=== PATIENT | male | born 1945 | race Caucasian/White ===

== ENCOUNTER 2021-07-29 11:51 | Emergency (ER) | payer MEDICARE ==
[~2021-07-29] VITALS: Ht 177.8 cm; Wt 77.7 kg
--- NOTE | 2021-07-29 12:40 | PHYS DOC ---
Past History Past Surgical History: Other Additional Past Surgical Histo: bilat rotator cuff repairs Alcohol Use: None General Adult EDM: Chief Complaint: DIARRHEA HPI: HPI: 75-year-old male presents with fevers, chills, body aches, diarrhea for least the last 3 days. The patient is not vaccinated for COVID-19. His fevers have been up to 102. He went to urgent care yesterday and had a COVID-19 test, but has not come back yet. The patient continues to have watery diarrhea. He tells me he has lost 4 pounds in the last 2 days. Patient has cardiac disease and has a scheduled bypass at the end of August. The patient is concerned about being dehydrated because of all the diarrhea. He has been able to drink some fluids but not anything. He has generalized abdominal pain. Review of Systems: Review of Systems: Constitutional: Fever, chills, fatigue. Eyes: Denies change in visual acuity HENT: Denies nasal congestion or sore throat Respiratory: Denies cough or shortness of breath Cardiovascular: Denies chest pain or edema GI: Generalized abdominal pain, nausea, vomiting, diarrhea : Denies dysuria Musculoskeletal: Denies back pain or joint pain Integument: Denies rash Neurologic: Denies headache, focal weakness or sensory changes Endocrine: Denies polyuria or polydipsia Lymphatic: Denies swollen glands Psychiatric: Denies depression or anxiety Current Medications: Current Meds: Current Medications Medications (Trade) Dose Ordered Sig/Alice Start Time Stop Time Status Last Admin Dose Admin Sodium Chloride 1,000 ml @ 1,000 mls/hr 1X ONCE 07/29/21 12:45 07/29/21 13:44 Allergies: Allergies: Allergies Coded Allergies Type Severity Reaction Last Updated Verified No Known Drug Allergies 07/29/21 No Physical Exam: PE: Constitutional: Well developed, well nourished, no acute distress, non-toxic appearance. [] HENT: Normocephalic, atraumatic, bilateral external ears normal, oropharynx moist, no oral exudates, nose normal. [] Eyes: PERRLA, EOMI, conjunctiva normal, no discharge. [] Neck: Normal range of motion, no tenderness, supple, no stridor. [] Cardiovascular: Heart rate 94, regular rhythm, no murmur [] Lungs & Thorax: Bilateral breath sounds clear to auscultation [] Abdomen: Bowel sounds normal, soft, mild generalized tenderness, no masses, no pulsatile masses. [] Skin: Warm, dry, no erythema, no rash. [] Back: No tenderness, no CVA tenderness. [] Extremities: No tenderness, no cyanosis, no clubbing, ROM intact, no edema. [] Neurologic: Alert and oriented X 3, normal motor function, normal sensory funct ion, no focal deficits noted. [] Psychologic: Affect normal, judgement normal, mood normal. [] Current Patient Data: Vital Signs: Vital Signs Date Time Temp Pulse Resp B/P (MAP) Pulse Ox O2 Delivery O2 Flow Rate FiO2 07/29/21 12:09 97.6 100 25 127/82 (97) 94 Room Air EKG: EKG: Sinus rhythm, rate 94, leftward axis, no ST elevation, slight depression V4 V5, V6 but less than 1 mm. [] Radiology/Procedures: Radiology/Procedures: [] Heart Score: C/O Chest Pain: N/A Risk Factors: Risk Factors: DM, Current or recent (<one month) smoker, HTN, HLP, family history of CAD, obesity. Risk Scores: Score 0 - 3: 2.5% MACE over next 6 weeks - Discharge Home Score 4 - 6: 20.3% MACE over next 6 weeks - Admit for Clinical Observation Score 7 - 10: 72.7% MACE over next 6 weeks - Early Invasive Strategies Course & Med Decision Making: Course & Med Decision Making Pertinent Labs and Imaging studies reviewed. (See chart for details) The patient's labs are significant for an elevated troponin of 4.8. Repeat EKG is similar to the first. Patient appears to be having an NSTEMI. [facility]. I have talked to the transfer team and Dr. Suarez has accepted the patient for transfer. They are working on a bed at this time. The patient will go by ambulance. We have started a heparin drip. The patient has a bed assignment he will be transferred. [] Yvonneon Disclaimer: Dragnate Disclaimer: This electronic medical record was generated, in whole or in part, using a voice recognition dictation system. Departure Departure: Impression: Primary Impression: NSTEMI (non-ST elevated myocardial infarction) Disposition: TERM HOSPITAL Condition: GUARDED Referrals: EMILIA LOZANO MD (PCP) JOYCELYN FONTANA DO Jul 29, 2021 12:40
--- NOTE | 2021-07-29 12:40 | EKG ---
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
[2021-07-29] MEDS ORDERED: IOHEXOL 300 MG/ML 75 ML VIAL. IV ONE (12:45)
[2021-07-29] MEDS ORDERED: CONTRAST GIVEN. MC PRN (12:45)
[2021-07-29] MEDS ORDERED: IV NORMAL SALINE 1,000ML 1,000 ML IV ONE (12:45)
[2021-07-29 13:16] LABS: BASO % 1 % (0-3); EOS % 0 % (0-3); HEMATOCRIT 43.9 % (39.0-53.0); HEMOGLOBIN 14.8 g/dL (13.0-17.5); LYMPH # 0.8 x10^3/uL (1.0-4.8); LYMPH % 9 % (24-48); MEAN CORPUSCULAR HEMOGLOBIN 29 pg (25-35); MEAN CORPUSCULAR HGB CONC 34 g/dL (31-37); MEAN CORPUSCULAR VOLUME 86 fL (79-100); MONO # 0.6 x10^3/uL (0.0-1.1); MONO % 6 % (0-9); NEUT # 8.2 x10^3uL (1.8-7.7); NEUT % 85 % (31-73); PLATELET COUNT 200 x10^3/uL (140-400); RED BLOOD COUNT 5.12 x10^6/uL (4.30-5.70); RED CELL DISTRIBUTION WIDTH 16.5 % (11.5-14.5); WHITE BLOOD COUNT 9.8 x10^3/uL (4.0-11.0)
[2021-07-29 13:19] LABS: CALCIUM 8.8 mg/dL (8.5-10.1); GFR 72.5; POTASSIUM 3.1 mmol/L (3.5-5.1)
--- NOTE | 2021-07-29 13:28 | RAD ---
EXAMINATION: Chest radiograph. VIEWS: Single view COMPARISON: None INDICATION:75 years, Male, chest pain. FINDINGS: Normal cardiomediastinal silhouette. Elevation of the right hemidiaphragm with right basilar subsegme ntal atelectasis. No focal consolidation. No pleural effusion or pneumothorax. No acute osseous proc ess. IMPRESSION: No acute cardiopulmonary process. Electronically signed by: Julio C Nunes MD (07/29/2021 1:26 PM) [facility]
[2021-07-29 13:32] LABS: ALBUMIN 3.2 g/dL (3.4-5.0); ALBUMIN/GLOBULIN RATIO 0.9 (1.0-1.7); TOTAL BILIRUBIN 0.7 mg/dL (0.2-1.0); TOTAL PROTEIN 6.6 g/dL (6.4-8.2)
[2021-07-29] MEDS ORDERED: HEPARIN for IV BOLUS 10,000 UNIT/10 ML VIAL. IV PRN (13:45)
[2021-07-29] MEDS ORDERED: HEPARIN for IV BOLUS 10,000 UNIT/10 ML VIAL. IV ONE (13:45)
[2021-07-29] MEDS ORDERED: HEPARIN 25,000UTS/250ML PREMIX 250 ML IV PRN (13:45)
--- NOTE | 2021-07-29 13:50 | EKG ---
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
--- NOTE | 2021-07-29 14:22 | RAD ---
EXAMINATION: CT abdomen and pelvis with IV contrast. INDICATION:75 years, Male, abdominal pain and diarrhea for 3 days. TECHNIQUE: Axial CT images of the abdomen and pelvis were obtained. Coronal and sagittal reformatted performed. COMPARISON: 01/17/2014. Exposure: One or more of the following individualized dose reduction techniques were utilized for thi s examination: 1. Automated exposure control 2. Adjustment of the mA and/or kV according to patient size 3. Use of iterative reconstruction technique. FINDINGS: LOWER CHEST: Bibasilar dependent atelectatic changes. Coronary artery atherosclerotic calcifications. ABDOMEN/PELVIS: Diffuse hepatic steatosis. Geographic shape hypoattenuation area adjacent to the gallbladder, favors focal fat infiltration, essentially unchanged since prior exam with allowing differences in technique . No suspicious focal hepatic lesion. Gallbladder, biliary ducts, and spleen are unremarkable. Mildly atrophic pancreatic parenchyma. No adrenal nodule. No hydronephrosis in either kidney. Prominent bilateral extrarenal pelvises. Left greater than right, bilateral nonobstructing nephrolithiasis, the largest in the left renal pelvis measures 1.2 cm. Mult ifocal bilateral cortical scarring/thinning. Subcentimeter hypodensity in the interpolar left kidney, too small to characterize. Nonspecific bilateral perinephric fat stranding. No bowel obstruction or wall thickening. Colonic diverticulosis without acute diverticulitis. Normal appendix. Mild aortoiliac atherosclerotic calcifications without narrowing or dilatation. Mesenteric arteries and portal vein are patent. No ascites or pneumoperitoneum. No lymphadenopathy in the abdome n or pelvis by size criteria. Diffuse urinary bladder wall thickening likely secondary to chronic out let obstruction. There are 2 urinary bladder stones, the largest measures 2.0 cm, increased burden since prior exam. P rostatomegaly indents bladder base, measures 5.0 cm maximal transverse dimension. MUSCULOSKELETAL: No acute osseous process. Multilevel degenerative changes in the spine. IMPRESSION: 1. No acute intra-abdominal findings. 2. Diffuse hepatic steatosis. 3. Colonic diverticulosis without acute diverticulitis. 4. Left greater than right, nonobstructing nephrolithiasis. 5. Two urinary bladder stones, the largest measures 2.0 cm. 6. Prostatomegaly. Correlate with PSA levels. Electronically signed by: Julio C Nunes MD (07/29/2021 2:19 PM) [facility]
[2021-07-29 15:55] VITALS: BP 112/73
== END 2021-07-29 16:21 | disposition short-term general hospital (02) ==
LOC: ER 11:51
DX: I21.4 Non-ST elevation (NSTEMI) myocardial infarction (principal)
CPT/HCPCS: 36415; 71045; 74177; 80053; 83880; 84484; 85025; 85610; 85730; 93005; 96361; 96365; 96366; 96376; 99285; J1644; J7030; Q9967